=== PATIENT | male | born 1960 | race Asian ===

== ENCOUNTER 2024-01-08 21:06 | Inpatient (IN) | payer OTHER ==
[~2024-01-08] VITALS: Ht 172.7 cm; Wt 67.7 kg
[2024-01-08 21:35] VITALS: BP_SYST 104; PULSE 91; RESP 16; TEMP 97.9; O2SAT 99
[2024-01-08] MEDS: NACL 0.9% 1,000 ML IV ONE (22:53)
[2024-01-08 23:12] LABS: BILIRUBIN,URINE NEGATIVE (NEGATIVE); BLOOD, URINE NEGATIVE (NEGATIVE); CLARITY/URINE CLEAR (CLEAR); COLOR,URINE YELLOW (YELLOW); GLUCOSE,URINE NEGATIVE (NEGATIVE); KETONES,URINE NEGATIVE (NEGATIVE); LEUKOCYTE ESTERASE ,URINE NEGATIVE (NEGATIVE); NITRITE, URINE NEGATIVE (NEGATIVE); PH,URINE 5.5 (5.0-8.0); PROTEIN URINE TRACE (NEGATIVE); UROBILINOGEN,URINE 0.2 (0.2-1.0)
[2024-01-08 23:16] LABS: BASOPHILS # (AUTO) 0.1 K/uL (0.0-0.2); BASOPHILS % (AUTO) 0.4 % (0.0-2.0); EOSINOPHILS # (AUTO) 0.3 K/uL (0.0-0.4); EOSINOPHILS % (AUTO) 1.3 % (0.0-4.0); HEMATOCRIT 36.5 % (36-54); HEMOGLOBIN 12.3 g/dL (14.0-18.0); LYMPHOCYTES # (AUTO) 1.3 K/uL (1.0-5.5); LYMPHOCYTES % (AUTO) 5.8 % (20.5-51.5); MEAN CORPUSCULAR HEMOGLOBIN 29 pg (27-31); MEAN CORPUSCULAR HGB CONC 34 % (32-36); MEAN CORPUSCULAR VOLUME 87 fL (79.0-98.0); MONOCYTES # (AUTO) 1.2 K/uL (0.0-1.0); MONOCYTES % (AUTO) 5.1 % (1.7-9.3); NEUTROPHILS # (AUTO) 20.3 K/uL (1.8-7.7); NEUTROPHILS % (AUTO) 87.4 % (40.0-70.0); PLATELET COUNT (AUTO) 525 K/uL (130-430); RED CELL DISTRIBUTION WIDTH 13.3 % (9.0-15.0); WHITE BLOOD COUNT (AUTO) 23.2 K/uL (4.8-10.8)
[2024-01-08 23:22] LABS: BACTERIA,URINE RARE /HPF (None Seen); WBC,URINE 0-3 /HPF (0-3)
[2024-01-08 23:25] LABS: INR 1.1 (0.80-1.20); PROTHROMBIN TIME 10.9 SECS (9.5-12.5)
[2024-01-08 23:29] LABS: ALANINE AMINOTRANSFERASE 88 U/L (12-78); ANION GAP 17 (5-15); ASPARTATE AMINOTRANSFERASE 174 U/L (10-37); BILIRUBIN,DIRECT 0.1 mg/dL (0.0-0.3); CALCIUM 8.7 mg/dL (8.4-11.0); CARBON DIOXIDE 27 mmol/L (23-29); CHLORIDE 96 mmol/L (98-107); CREATININE 1.51 mg/dL (0.55-1.30); GFR AFRICAN AMERICAN 61 mL/min (>90); GLUCOSE 128 mg/dL (74-106); LIPASE 54 U/L (16-77); SODIUM SERUM 140 mmol/L (136-145); TOTAL BILIRUBIN 0.5 mg/dL (0.0-1.0); TOTAL PROTEIN, SERUM 8.4 g/dL (6.4-8.3); UREA NITROGEN, BLOOD 38 mg/dL (8-21)
[2024-01-08 23:32] LABS: GFR NON AFRICAN-AMERICAN 50 mL/min (>90)
[2024-01-08 23:34] LABS: POTASSIUM 2.9 mmol/L (3.5-5.1)
[2024-01-09] VITALS (7 sets, daily range): BP systolic 124–133; PULSE 76–83; RESP 14–20; TEMP 97.2–97.8; O2SAT 94–98
[2024-01-09] MEDS ORDERED: cefTRIAXone 1 GM VIAL ONE (01:23)
[2024-01-09] MEDS: MORPHINE 4 MG INJ. 4 MG/ML VIAL IVP ONE (01:31)
[2024-01-09] MEDS: NACL 0.9% 1,000 ML IV ONE (01:31)
[2024-01-09] MEDS: ONDANSETRON HCL 4 MG/2 ML VIAL IVP ONE (01:32)
[2024-01-09] MEDS: cefTRIAXone 1 GM in D5W 50 ML IV ONE (02:26)
[2024-01-09] MEDS: metroNIDAZOLE 500 mg/NS 100 ML IV ONE (02:29)
[2024-01-09] MEDS: KCL 20 mEq in 100 mL (PREMIX) 100 ML IV ONE ×2 (03:30→04:09)
[2024-01-09] MEDS ORDERED: D5/0.45 NS 1,000 ML IV SCH (03:45)
[2024-01-09] MEDS ORDERED: VALS160T29 PO (04:20)
[2024-01-09] MEDS ORDERED: ATOR-1 PO (04:20)
[2024-01-09] MEDS ORDERED: NIFE90TA2 PO (04:20)
[2024-01-09] MEDS ORDERED: HYDR25TA4 PO (04:20)
[2024-01-09] MEDS ORDERED: ASPI-1393 PO (04:20)
[2024-01-09] MEDS ORDERED: NALOXONE HCL 0.4 MG/ML AMP (NARCAN) IVP PRN ×3 (05:45→11:15)
[2024-01-09] MEDS ORDERED: ONDANSETRON HCL 4 MG/2 ML VIAL IVP PRN ×2 (05:45→11:15)
[2024-01-09] MEDS ORDERED: ACETAMINOPHEN 325 MG TABLET PO PRN ×3 (05:45→12:00)
[2024-01-09] MEDS: MORPHINE 4 MG INJ. 4 MG/ML VIAL IVP PRN (06:35)
[2024-01-09] MEDS ORDERED: LORazepam 2 MG/ML VIAL IVP PRN (11:15)
[2024-01-09] MEDS: D5/0.45 NS 1,000 ML IV SCH (11:15)
[2024-01-09] MEDS ORDERED: VALSARTAN Non-Formulary 160 MG TABLET PO SCH (11:15)
[2024-01-09] MEDS ORDERED: HYDROcodone/ACETAMIN 5-325 MG TAB (NORCO/ VICODIN) PO PRN (11:15)
[2024-01-09] MEDS: ASPIRIN 81 MG TABLET(ECOTRIN) PO ONE (13:35)
[2024-01-09] MEDS: LOSARTAN POTASSIUM 50 MG TABLET (COZAAR) PO ONE (13:36)
[2024-01-09] MEDS: HYDROCHLOROTHIAZIDE 25 MG TABLET (HCTZ) PO ONE (13:36)
[2024-01-09] MEDS: NIFEdipine 30 MG TAB.ER.24 PO ONE (13:45)
[2024-01-09] MEDS: metroNIDAZOLE 500 mg/NS 100 ML IV SCH (14:46)
[2024-01-09 15:24] LABS: BASOPHILS # (AUTO) 0.1 K/uL (0.0-0.2); BASOPHILS % (AUTO) 0.5 % (0.0-2.0); EOSINOPHILS # (AUTO) 0.2 K/uL (0.0-0.4); EOSINOPHILS % (AUTO) 1.1 % (0.0-4.0); HEMATOCRIT 32.7 % (36-54); LYMPHOCYTES % (AUTO) 5.1 % (20.5-51.5); MEAN CORPUSCULAR HEMOGLOBIN 29 pg (27-31); MEAN CORPUSCULAR HGB CONC 34 % (32-36); MEAN CORPUSCULAR VOLUME 87 fL (79.0-98.0); MONOCYTES # (AUTO) 1.2 K/uL (0.0-1.0); MONOCYTES % (AUTO) 6.1 % (1.7-9.3); NEUTROPHILS % (AUTO) 87.2 % (40.0-70.0); PLATELET COUNT (AUTO) 451 K/uL (130-430); RED BLOOD CELL COUNT(AUTO) 3.76 MIL/uL (4.2-6.2); RED CELL DISTRIBUTION WIDTH 13.1 % (9.0-15.0); WHITE BLOOD COUNT (AUTO) 19.5 K/uL (4.8-10.8)
[2024-01-09 18:55] LABS: BILIRUBIN,URINE NEGATIVE (NEGATIVE); BLOOD, URINE NEGATIVE (NEGATIVE); CLARITY/URINE CLEAR (CLEAR); COLOR,URINE YELLOW (YELLOW); GLUCOSE,URINE NEGATIVE (NEGATIVE); KETONES,URINE NEGATIVE (NEGATIVE); LEUKOCYTE ESTERASE ,URINE NEGATIVE (NEGATIVE); NITRITE, URINE NEGATIVE (NEGATIVE); PROTEIN URINE TRACE (NEGATIVE)
[2024-01-09] MEDS: ATORVASTATIN 20 MG TABLET PO SCH (23:09)
[2024-01-09] MEDS: CEFEPIME 2 GM in D5W 100 ML IV SCH (23:10)
[2024-01-10 00:11] VITALS: BP_SYST 125; PULSE 88; RESP 18; TEMP 96.8; O2SAT 95
[2024-01-10 00:30] VITALS: RESP 20; TEMP 96.8
[2024-01-10] MEDS: MORPHINE 2 MG/ML INJ. SYRINGE IVP PRN (02:13)
[2024-01-10 06:55] LABS: BASOPHILS # (AUTO) 0.1 K/uL (0.0-0.2); BASOPHILS % (AUTO) 0.3 % (0.0-2.0); EOSINOPHILS # (AUTO) 0.3 K/uL (0.0-0.4); EOSINOPHILS % (AUTO) 1.8 % (0.0-4.0); HEMATOCRIT 32.8 % (36-54); LYMPHOCYTES # (AUTO) 1.5 K/uL (1.0-5.5); LYMPHOCYTES % (AUTO) 9.1 % (20.5-51.5); MEAN CORPUSCULAR HEMOGLOBIN 30 pg (27-31); MEAN CORPUSCULAR HGB CONC 34 % (32-36); MEAN CORPUSCULAR VOLUME 88 fL (79.0-98.0); MONOCYTES # (AUTO) 1.2 K/uL (0.0-1.0); MONOCYTES % (AUTO) 6.9 % (1.7-9.3); NEUTROPHILS # (AUTO) 13.7 K/uL (1.8-7.7); NEUTROPHILS % (AUTO) 81.9 % (40.0-70.0); PLATELET COUNT (AUTO) 452 K/uL (130-430); RED BLOOD CELL COUNT(AUTO) 3.74 MIL/uL (4.2-6.2); RED CELL DISTRIBUTION WIDTH 13.2 % (9.0-15.0); WHITE BLOOD COUNT (AUTO) 16.8 K/uL (4.8-10.8)
[2024-01-10 07:31] LABS: CALCIUM 7.3 mg/dL (8.4-11.0); CREATININE 1.18 mg/dL (0.55-1.30); PHOSPHORUS 3.2 mg/dL (2.7-4.5)
[2024-01-10 07:33] LABS: POTASSIUM 2.9 mmol/L (3.5-5.1)
[2024-01-10 08:00] VITALS: O2SAT 99
[2024-01-10 08:29] VITALS: BP_SYST 101; PULSE 76; RESP 18; TEMP 98.3; O2SAT 99
[2024-01-10] MEDS: ASPIRIN 81 MG TABLET(ECOTRIN) PO SCH (08:56)
[2024-01-10] MEDS: POTASSIUM CHLORIDE 40 MEQ in NS 250 ML IV ONE (08:57)
[2024-01-10] MEDS: LOSARTAN POTASSIUM 50 MG TABLET (COZAAR) PO SCH (09:00)
[2024-01-10] MEDS: NIFEdipine 30 MG TAB.ER.24 PO SCH (09:00)
[2024-01-10] MEDS: HYDROCHLOROTHIAZIDE 25 MG TABLET (HCTZ) PO SCH (09:00)
[2024-01-10 11:04] VITALS: BP_SYST 97; PULSE 94; RESP 14; TEMP 97.6; O2SAT 93
[2024-01-10 16:00] VITALS: BP_SYST 125; PULSE 77; RESP 14; TEMP 97.9; O2SAT 95
[2024-01-10] MEDS: traZODone HCL 50 MG TABLET (DESYREL) PO PRN (20:04)
[2024-01-11 01:47] VITALS: BP_SYST 110; PULSE 92; RESP 18; TEMP 97.7; O2SAT 94
[2024-01-11 05:46] LABS: BASOPHILS # (AUTO) 0.1 K/uL (0.0-0.2); BASOPHILS % (AUTO) 0.8 % (0.0-2.0); EOSINOPHILS # (AUTO) 0.5 K/uL (0.0-0.4); HEMATOCRIT 30.9 % (36-54); HEMOGLOBIN 10.3 g/dL (14.0-18.0); LYMPHOCYTES % (AUTO) 7.7 % (20.5-51.5); MEAN CORPUSCULAR HEMOGLOBIN 30 pg (27-31); MEAN CORPUSCULAR HGB CONC 34 % (32-36); MEAN CORPUSCULAR VOLUME 88 fL (79.0-98.0); MONOCYTES # (AUTO) 1.1 K/uL (0.0-1.0); NEUTROPHILS # (AUTO) 10.5 K/uL (1.8-7.7); NEUTROPHILS % (AUTO) 79.5 % (40.0-70.0); PLATELET COUNT (AUTO) 374 K/uL (130-430); RED CELL DISTRIBUTION WIDTH 13.3 % (9.0-15.0); WHITE BLOOD COUNT (AUTO) 13.2 K/uL (4.8-10.8)
[2024-01-11 05:50] LABS: ERYTHROCYTE SEDIMENTATION RATE 51 MM/HR (0-15)
[2024-01-11 08:00] VITALS: BP_SYST 112; PULSE 89; RESP 18; TEMP 98.4; O2SAT 99
[2024-01-11 08:15] LABS: ALBUMIN 1.8 g/dL (3.4-4.8); CREATININE 1.16 mg/dL (0.55-1.30); PHOSPHORUS 2.6 mg/dL (2.7-4.5); TOTAL BILIRUBIN 0.4 mg/dL (0.0-1.0); TOTAL PROTEIN, SERUM 5.8 g/dL (6.4-8.3)
[2024-01-11 09:25] LABS: CALCIUM 6.9 mg/dL (8.4-11.0)
[2024-01-11 11:22] VITALS: BP_SYST 145; PULSE 63; RESP 16; TEMP 99.2; O2SAT 95
[2024-01-11] MEDS: CALCIUM GLUC 2 GM/100ML-NACL 100 ML IV ONE (11:27)
[2024-01-11 14:59] VITALS: BP_SYST 125; PULSE 92; RESP 16; TEMP 98.7; O2SAT 94
[2024-01-11 23:00] VITALS: BP_SYST 110; PULSE 97; RESP 18; TEMP 99.5; O2SAT 97
[2024-01-12] VITALS: TEMP 99.3
[2024-01-12] MEDS ORDERED: KCL 40 mEq in 100 mL (PREMIX) 100 ML IV ONE ×2 (02:30→10:30)
[2024-01-12] MEDS: KCL 20 mEq in 100 mL (PREMIX) 100 ML IV ONE ×2 (03:21→04:30)
[2024-01-12 05:22] LABS: BASOPHILS # (AUTO) 0.1 K/uL (0.0-0.2); BASOPHILS % (AUTO) 0.4 % (0.0-2.0); EOSINOPHILS # (AUTO) 0.4 K/uL (0.0-0.4); HEMATOCRIT 31.7 % (36-54); HEMOGLOBIN 10.6 g/dL (14.0-18.0); LYMPHOCYTES # (AUTO) 1.2 K/uL (1.0-5.5); LYMPHOCYTES % (AUTO) 9.5 % (20.5-51.5); MEAN CORPUSCULAR HEMOGLOBIN 29 pg (27-31); MEAN CORPUSCULAR HGB CONC 34 % (32-36); MEAN CORPUSCULAR VOLUME 87 fL (79.0-98.0); MONOCYTES # (AUTO) 1.2 K/uL (0.0-1.0); MONOCYTES % (AUTO) 9.5 % (1.7-9.3); NEUTROPHILS % (AUTO) 77.6 % (40.0-70.0); PLATELET COUNT (AUTO) 410 K/uL (130-430); RED BLOOD CELL COUNT(AUTO) 3.62 MIL/uL (4.2-6.2); RED CELL DISTRIBUTION WIDTH 13.2 % (9.0-15.0); WHITE BLOOD COUNT (AUTO) 12.9 K/uL (4.8-10.8)
[2024-01-12 05:30] LABS: ERYTHROCYTE SEDIMENTATION RATE 59 MM/HR (0-15)
[2024-01-12 05:44] LABS: CALCIUM 7.9 mg/dL (8.4-11.0); CREATININE 1.39 mg/dL (0.55-1.30)
[2024-01-12 08:04] VITALS: BP_SYST 120; PULSE 78; RESP 17; TEMP 98.8; O2SAT 99
[2024-01-12] MEDS: fentaNYL CITRATE/PF 100 MCG/2 ML AMP ONE (10:09)
[2024-01-12] MEDS: MIDAZOLAM HCL 5 MG/5 ML VIAL ONE (10:09)
[2024-01-12] MEDS ORDERED: LIDOCAINE 1%, 20 ML MDV 20 ML ONE (11:06)
[2024-01-12] MEDS ORDERED: iohexoL 240 mgI/mL, 50 ML INFUS..BTL IV ONE (11:19)
[2024-01-12] MEDS ORDERED: POTASSIUM CHLORIDE 20 mEq in 100 mL (PREMIX) 100 ML x 2 doses IV SCH (11:45)
[2024-01-12 12:35] VITALS: BP_SYST 118; PULSE 77; RESP 18; TEMP 97.6; O2SAT 98
[2024-01-12 16:15] VITALS: BP_SYST 117; PULSE 74; RESP 17; TEMP 98.2; O2SAT 99
[2024-01-12 20:10] VITALS: BP_SYST 122; PULSE 114; RESP 18; TEMP 98.4; O2SAT 92
[2024-01-12 20:30] VITALS: O2SAT 92
[2024-01-13] VITALS (7 sets, daily range): BP systolic 115–118; PULSE 96–105; RESP 18–19; TEMP 97.5–98.5; O2SAT 94–99
[2024-01-13 06:34] LABS: BASOPHILS # (AUTO) 0.1 K/uL (0.0-0.2); BASOPHILS % (AUTO) 0.5 % (0.0-2.0); EOSINOPHILS # (AUTO) 0.4 K/uL (0.0-0.4); EOSINOPHILS % (AUTO) 3.2 % (0.0-4.0); HEMATOCRIT 31.5 % (36-54); HEMOGLOBIN 10.7 g/dL (14.0-18.0); LYMPHOCYTES # (AUTO) 1.3 K/uL (1.0-5.5); LYMPHOCYTES % (AUTO) 9.5 % (20.5-51.5); MEAN CORPUSCULAR HEMOGLOBIN 30 pg (27-31); MEAN CORPUSCULAR HGB CONC 34 % (32-36); MEAN CORPUSCULAR VOLUME 88 fL (79.0-98.0); MONOCYTES # (AUTO) 1.3 K/uL (0.0-1.0); MONOCYTES % (AUTO) 9.7 % (1.7-9.3); NEUTROPHILS # (AUTO) 10.7 K/uL (1.8-7.7); NEUTROPHILS % (AUTO) 77.1 % (40.0-70.0); PLATELET COUNT (AUTO) 428 K/uL (130-430); RED CELL DISTRIBUTION WIDTH 13.3 % (9.0-15.0); WHITE BLOOD COUNT (AUTO) 13.9 K/uL (4.8-10.8)
[2024-01-13 06:39] LABS: ERYTHROCYTE SEDIMENTATION RATE 67 MM/HR (0-15)
[2024-01-13 06:52] LABS: CALCIUM 7.9 mg/dL (8.4-11.0); CREATININE 1.33 mg/dL (0.55-1.30); PHOSPHORUS 3.2 mg/dL (2.7-4.5); POTASSIUM 3.3 mmol/L (3.5-5.1)
[2024-01-13] MEDS: LOSARTAN POTASSIUM 50 MG TABLET (COZAAR) PO SCH (09:00)
[2024-01-13] MEDS: HYDROcodone/ACETAMIN 10-325 MG TAB PO PRN (09:03)
[2024-01-13] MEDS: CALCIUM CARBONATE/VITAMIN D3 1 TAB TABLET PO SCH (09:04)
[2024-01-13] MEDS: POTASSIUM CHLORIDE 20 MEQ TABLET.ER PO ONE (21:14)
[2024-01-14] VITALS (8 sets, daily range): BP systolic 117–120; PULSE 101–106; RESP 17–18; TEMP 98.2–98.7; O2SAT 90–98
[2024-01-14 05:46] LABS: BASOPHILS # (AUTO) 0.1 K/uL (0.0-0.2); BASOPHILS % (AUTO) 0.4 % (0.0-2.0); EOSINOPHILS # (AUTO) 0.2 K/uL (0.0-0.4); EOSINOPHILS % (AUTO) 1.3 % (0.0-4.0); HEMATOCRIT 30.2 % (36-54); HEMOGLOBIN 10.1 g/dL (14.0-18.0); LYMPHOCYTES # (AUTO) 0.8 K/uL (1.0-5.5); LYMPHOCYTES % (AUTO) 5.8 % (20.5-51.5); MEAN CORPUSCULAR HEMOGLOBIN 29 pg (27-31); MEAN CORPUSCULAR HGB CONC 34 % (32-36); MEAN CORPUSCULAR VOLUME 87 fL (79.0-98.0); MONOCYTES # (AUTO) 1.2 K/uL (0.0-1.0); NEUTROPHILS # (AUTO) 11.5 K/uL (1.8-7.7); NEUTROPHILS % (AUTO) 83.5 % (40.0-70.0); PLATELET COUNT (AUTO) 440 K/uL (130-430); RED BLOOD CELL COUNT(AUTO) 3.46 MIL/uL (4.2-6.2); RED CELL DISTRIBUTION WIDTH 13.4 % (9.0-15.0); WHITE BLOOD COUNT (AUTO) 13.8 K/uL (4.8-10.8)
[2024-01-14 05:55] LABS: ERYTHROCYTE SEDIMENTATION RATE 67 MM/HR (0-15)
[2024-01-14 06:18] LABS: CREATININE 1.3 mg/dL (0.55-1.30); PHOSPHORUS 3.1 mg/dL (2.7-4.5); POTASSIUM 3.6 mmol/L (3.5-5.1)
[2024-01-14] MEDS: IPRATROPIUM/ALBUTEROL SULFATE 3 ML AMPUL.NEB (DUONEB) INH PRN (07:50)
[2024-01-15] VITALS: BP_SYST 118; PULSE 99; RESP 18; TEMP 97.8; O2SAT 95
[2024-01-15 05:58] LABS: BASOPHILS # (AUTO) 0.1 K/uL (0.0-0.2); BASOPHILS % (AUTO) 0.7 % (0.0-2.0); EOSINOPHILS # (AUTO) 0.5 K/uL (0.0-0.4); EOSINOPHILS % (AUTO) 3.3 % (0.0-4.0); HEMATOCRIT 29.9 % (36-54); LYMPHOCYTES # (AUTO) 1.2 K/uL (1.0-5.5); LYMPHOCYTES % (AUTO) 8.6 % (20.5-51.5); MEAN CORPUSCULAR HEMOGLOBIN 29 pg (27-31); MEAN CORPUSCULAR HGB CONC 34 % (32-36); MEAN CORPUSCULAR VOLUME 87 fL (79.0-98.0); MONOCYTES # (AUTO) 1.4 K/uL (0.0-1.0); MONOCYTES % (AUTO) 9.5 % (1.7-9.3); NEUTROPHILS # (AUTO) 11.2 K/uL (1.8-7.7); NEUTROPHILS % (AUTO) 77.9 % (40.0-70.0); PLATELET COUNT (AUTO) 458 K/uL (130-430); RED BLOOD CELL COUNT(AUTO) 3.45 MIL/uL (4.2-6.2); RED CELL DISTRIBUTION WIDTH 13.4 % (9.0-15.0); WHITE BLOOD COUNT (AUTO) 14.3 K/uL (4.8-10.8)
[2024-01-15 06:01] LABS: ERYTHROCYTE SEDIMENTATION RATE 72 MM/HR (0-15)
[2024-01-15 06:32] LABS: ALBUMIN 1.8 g/dL (3.4-4.8); CALCIUM 7.7 mg/dL (8.4-11.0); CREATININE 1.29 mg/dL (0.55-1.30); PHOSPHORUS 3.9 mg/dL (2.7-4.5); POTASSIUM 3.3 mmol/L (3.5-5.1); TOTAL BILIRUBIN 0.3 mg/dL (0.0-1.0); TOTAL PROTEIN, SERUM 6.3 g/dL (6.4-8.3)
[2024-01-15 08:00] VITALS: O2SAT 99
[2024-01-15 08:14] VITALS: BP_SYST 112; PULSE 104; RESP 18; TEMP 97.5; O2SAT 96
[2024-01-15] MEDS ORDERED: METR-154 PO (10:01)
[2024-01-15] MEDS ORDERED: CIPR250T4 PO (10:01)
[2024-01-15] MEDS: POTASSIUM CHLORIDE 20 MEQ TABLET.ER PO ONE (10:23)
[2024-01-15] MEDS ORDERED: POTASSIUM CHLORIDE 20 MEQ TABLET.ER PO ONE (10:30)
[2024-01-15 12:10] VITALS: O2SAT 94
[2024-01-15 12:33] VITALS: BP_SYST 129; PULSE 109; RESP 17; TEMP 97.7; O2SAT 94
[2024-01-15 13:26] VITALS: BP_SYST 129; PULSE 108; RESP 16; TEMP 97.7; O2SAT 95
== END 2024-01-15 14:10 | disposition home or self-care (01) | DRG 871 ==
LOC: SED 21:06 → SMU 01-09 03:32
PROVIDERS: ADMIT Preventive Medicine Preventive Medicine/Occupational Environmental Medicine; ATTEND Preventive Medicine Preventive Medicine/Occupational Environmental Medicine
PROC: BT121ZZ Fluoroscopy of Left Kidney using Low Osmolar Contrast (ICD-10-PCS; 2024-01-12)
PROC: 0T9430Z Drainage of Left Kidney Pelvis with Drainage Device, Percutaneous Approach (ICD-10-PCS; principal; 2024-01-12 10:45)
DX: A41.9 Sepsis, unspecified organism (principal); E43 Unspecified severe protein-calorie malnutrition; N17.0 Acute kidney failure with tubular necrosis; R18.8 Other ascites; N13.30 Unspecified hydronephrosis; C18.9 Malignant neoplasm of colon, unspecified; C78.6 Secondary malignant neoplasm of retroperitoneum and peritoneum; K52.9 Noninfective gastroenteritis and colitis, unspecified; F19.90 Other psychoactive substance use, unspecified, uncomplicated; E88.09 Other disorders of plasma-protein metabolism, not elsewhere classified; E87.6 Hypokalemia; E83.51 Hypocalcemia; E83.41 Hypermagnesemia; E83.39 Other disorders of phosphorus metabolism; D75.839 Thrombocytosis, unspecified; E11.65 Type 2 diabetes mellitus with hyperglycemia; D64.9 Anemia, unspecified; Z79.899 Other long term (current) drug therapy; Z68.22 Body mass index [BMI] 22.0-22.9, adult
CPT/HCPCS: 36415; 71045; 74018; 76000; 76770; 76942; 80048; 80053; 80076; 81000; 81001; 81003; 81015; 82378; 82570; 83605; 83690; 83735; 84100; 84302; 84484; 85025; 85610; 85651; 85730; 86886; 86900; 86901; 87040; 87081; 87086; 93005; 94070; 94640; 94760; 96360; 99291; J0692; J0696; J1956; J2001; J2250; J2270; J2405; J3010; J3480; J3490; J7050; J7060; Q9966

== ENCOUNTER 2024-01-17 07:47 | Emergency (ER) | payer OTHER ==
[~2024-01-17] VITALS: Ht 177.8 cm; Wt 67.6 kg
[2024-01-17 07:47] VITALS: BP_SYST 107; PULSE 109; RESP 26; TEMP 97.1; O2SAT 92
[~2024-01-17 07:47] MED LIST: ASPI-1393 PO; ATOR-1 PO; CIPR250T4 PO; METR-154 PO; NIFE90TA2 PO; PIPERACILLIN/TAZOBACTAM 2.25 GM in D5W 50 ML IV SCH; VALS160T29 PO
[2024-01-17 08:39] LABS: BASOPHILS % (AUTO) 0.1 % (0.0-2.0); HEMATOCRIT 22.5 % (36-54); HEMOGLOBIN 7.5 g/dL (14.0-18.0); LYMPHOCYTES # (AUTO) 0.9 K/uL (1.0-5.5); MEAN CORPUSCULAR HEMOGLOBIN 29 pg (27-31); MEAN CORPUSCULAR HGB CONC 33 % (32-36); MEAN CORPUSCULAR VOLUME 88 fL (79.0-98.0); MONOCYTES # (AUTO) 1.1 K/uL (0.0-1.0); MONOCYTES % (AUTO) 4.9 % (1.7-9.3); NEUTROPHILS # (AUTO) 19.7 K/uL (1.8-7.7); PLATELET COUNT (AUTO) 588 K/uL (130-430); RED BLOOD CELL COUNT(AUTO) 2.57 MIL/uL (4.2-6.2); RED CELL DISTRIBUTION WIDTH 13.5 % (9.0-15.0); WHITE BLOOD COUNT (AUTO) 21.7 K/uL (4.8-10.8)
[2024-01-17 08:57] LABS: INR 1.6 (0.80-1.20); PROTHROMBIN TIME 16.1 SECS (9.5-12.5)
[2024-01-17 09:01] LABS: COVID19 ANTIGEN SOFIA FIA NEGATIVE (NEGATIVE)
[2024-01-17 09:05] LABS: INFLUENZA TYPE A Negative (NEGATIVE); INFLUENZA TYPE B NEGATIVE (NEGATIVE)
[2024-01-17] MEDS ORDERED: PIPERACILLIN/TAZO 4.5GM/DEX-IS 100 ML IV SCH (09:15)
[2024-01-17] MEDS: PIPERACILLIN/TAZO 4.5GM/DEX-IS 100 ML IV ONE (09:34)
[2024-01-17 09:35] LABS: BILIRUBIN,URINE 2+ (NEGATIVE); BLOOD, URINE 3+ (NEGATIVE); CLARITY/URINE CLOUDY (CLEAR); GLUCOSE,URINE TRACE (NEGATIVE); KETONES,URINE TRACE (NEGATIVE); LEUKOCYTE ESTERASE ,URINE 3+ (NEGATIVE); NITRITE, URINE POSITIVE (NEGATIVE); PROTEIN URINE 3+ (NEGATIVE)
[2024-01-17 09:38] LABS: COLOR,URINE RED (YELLOW)
[2024-01-17 09:39] LABS: ALANINE AMINOTRANSFERASE 46 U/L (12-78); ALBUMIN 1.9 g/dL (3.4-4.8); AMYLASE 70 U/L (0-100); ANION GAP 16 (5-15); ASPARTATE AMINOTRANSFERASE 133 U/L (10-37); BILIRUBIN,DIRECT 0.1 mg/dL (0.0-0.3); CALCIUM 8.8 mg/dL (8.4-11.0); CARBON DIOXIDE 21 mmol/L (23-29); CHLORIDE 106 mmol/L (98-107); CREATININE 2.06 mg/dL (0.55-1.30); GFR AFRICAN AMERICAN 42 mL/min (>90); GFR NON AFRICAN-AMERICAN 35 mL/min (>90); GLUCOSE 145 mg/dL (74-106); LIPASE 90 U/L (16-77); POTASSIUM 4.5 mmol/L (3.5-5.1); SODIUM SERUM 143 mmol/L (136-145); TOTAL BILIRUBIN 0.4 mg/dL (0.0-1.0); TOTAL PROTEIN, SERUM 6.1 g/dL (6.4-8.3); UREA NITROGEN, BLOOD 73 mg/dL (8-21)
[2024-01-17] MEDS: NACL 0.9% 2,000 ML IV ONE (09:43)
[2024-01-17 09:45] LABS: ACETONE, SERUM NEGATIVE (NEGATIVE)
[2024-01-17 10:03] LABS: BACTERIA,URINE MODERATE /HPF (None Seen); MUCUS,URINE 1+ /LPF (None Seen); RBC,URINE >100 /HPF (0-3); WBC,URINE 20-50 /HPF (0-3)
[2024-01-17] MEDS: ONDANSETRON HCL 4 MG/2 ML VIAL IVP ONE (10:18)
[2024-01-17] MEDS: MORPHINE 2 MG/ML INJ. SYRINGE IVP ONE ×3 (10:19→17:12)
[2024-01-17] MEDS: VANCOMYCIN HCL 1,000 MG in NS 250 ML IV ONE ×2 (10:57→21:07)
[2024-01-17] MEDS ORDERED: PANTOPRAZOLE SODIUM 40 MG/VIAL (PROTONIX) ONE (17:07)
[2024-01-17] MEDS: PANTOPRAZOLE SODIUM 80 MG in NS 100 ML IVP ONE (17:29)
[2024-01-17] MEDS: D5/0.45 NS 1,000 ML IV ONE (17:40)
[2024-01-17] MEDS ORDERED: VANCOMYCIN HCL 1,000 MG in NS 250 ML IV ONE (22:00)
[2024-01-17 22:31] LABS: BASOPHILS # (AUTO) 0.1 K/uL (0.0-0.2); BASOPHILS % (AUTO) 0.2 % (0.0-2.0); HEMOGLOBIN 8.5 g/dL (14.0-18.0); LYMPHOCYTES # (AUTO) 1.7 K/uL (1.0-5.5); MEAN CORPUSCULAR HEMOGLOBIN 28 pg (27-31); MEAN CORPUSCULAR HGB CONC 33 % (32-36); MEAN CORPUSCULAR VOLUME 87 fL (79.0-98.0); MONOCYTES # (AUTO) 1.5 K/uL (0.0-1.0); MONOCYTES % (AUTO) 5.4 % (1.7-9.3); NEUTROPHILS # (AUTO) 24.8 K/uL (1.8-7.7); NEUTROPHILS % (AUTO) 88.4 % (40.0-70.0); PLATELET COUNT (AUTO) 386 K/uL (130-430); RED BLOOD CELL COUNT(AUTO) 2.99 MIL/uL (4.2-6.2); RED CELL DISTRIBUTION WIDTH 15.9 % (9.0-15.0)
[2024-01-17 22:48] LABS: ALBUMIN 1.8 g/dL (3.4-4.8); CALCIUM 7.5 mg/dL (8.4-11.0); CREATININE 2.04 mg/dL (0.55-1.30); POTASSIUM 4.2 mmol/L (3.5-5.1); TOTAL BILIRUBIN 0.3 mg/dL (0.0-1.0); TOTAL PROTEIN, SERUM 4.9 g/dL (6.4-8.3)
[2024-01-17] MEDS: PIPERACILLIN/TAZOBACTAM 2.25 GM in D5W 50 ML IV SCH (23:55)
[2024-01-18] MEDS ORDERED: PIPERACILLIN/TAZO 3.375 GM in NS 50 ML IV SCH (06:00)
[2024-01-18] MEDS: MORPHINE 2 MG/ML INJ. SYRINGE IVP ONE (09:04)
[2024-01-18 11:07] VITALS: BP_SYST 108; PULSE 84; RESP 23; TEMP 97.9; O2SAT 98
== END 2024-01-18 10:55 | disposition short-term general hospital (02) ==
LOC: SED 07:47
DX: C18.9 Malignant neoplasm of colon, unspecified (principal); C78.7 Secondary malignant neoplasm of liver and intrahepatic bile duct; J18.9 Pneumonia, unspecified organism; K92.2 Gastrointestinal hemorrhage, unspecified; Z20.822 Contact with and (suspected) exposure to COVID-19; Z79.899 Other long term (current) drug therapy; Z79.2 Long term (current) use of antibiotics
CPT/HCPCS: 99285; 36430; 74176; 96365; 96366 ×2; 71045; 96375; 76705; 96367; 87426; 80053; 81001; 82009; 82140; 82150; 83880; 83690; 85025; 85610; 85730; 86886; 86900; 86901; 87040; 87086; 84484; 86920; 36415; 93005; 96376 ×2; 87804 ×2; 82397; 80076; 80048; 83605; P9021; P9059; J2405; C9113; J2543 ×2; J3370; J2270 ×2; J7050; J7060; 81000; 81015